=== PATIENT | female | born 1985 | race African-American/Black ===

== ENCOUNTER 2016-08-09 21:15 | Inpatient (IN) | payer MEDICARE, MEDICAID ==
[~2016-08-09 21:15] MED LIST: ACYC200C PO; BENZ1TAB10 PO; ELVI1TAB PO; HALO10 PO; LITH300C3 PO; MULT-1238 PO
[2016-08-10] MEDS ORDERED: QUEtiapine FUMARATE 100 MG TABLET PO PRN (03:45)
[2016-08-10] MEDS ORDERED: ZOLPIDEM TARTRATE 10 MG TABLET PO PRN (03:45)
[2016-08-10 05:38] VITALS: BP 112/71
[2016-08-10 06:09] VITALS: BP 112/71
[2016-08-10 08:41] VITALS: BP 105/62
[2016-08-10 15:53] VITALS: BP 110/68
[2016-08-10] MEDS: LORazepam 1 MG TABLET PO PRN (15:53)
[2016-08-10] MEDS: ARIPiprazole 10 MG TABLET PO SCH (16:02)
[2016-08-10 16:39] VITALS: BP 95/61
[2016-08-10] MEDS ORDERED: IBUPROFEN 400 MG TABLET PO PRN (22:30)
[2016-08-10] MEDS ORDERED: ACETAMINOPHEN 325 MG TABLET PO PRN (22:30)
[2016-08-11 00:45] VITALS: BP 100/61
[2016-08-11] MEDS ORDERED: [UNRECOGNIZED DRUG - OTHER] PO SCH (07:00)
[2016-08-11 08:13] VITALS: BP 100/51
[2016-08-11] MEDS: ARIPiprazole 10 MG TABLET PO SCH (08:21)
[2016-08-11] MEDS: MULTIVITAMINS, THERAPEUTIC TABLET PO SCH (08:21)
[2016-08-11 08:40] LABS: APPEARANCE,URINE TURBID (CLEAR); GLUCOSE, URINE (UA) NEGATIVE (NEGATIVE); KETONES,URINE NEGATIVE (NEGATIVE); LEUKOCYTE ESTERASE ,URINE NEGATIVE (NEGATIVE); OCCULT BLOOD,URINE NEGATIVE (NEGATIVE); PROTEIN,URINE TRACE (NEGATIVE)
[2016-08-11 10:40] LABS: ADD UA MICROSCOPIC YES
[2016-08-11 10:42] LABS: AMORPHOUS SEDIMENT,UR Many /LPF (None Seen); CALCIUM OXALATE CRYSTALS,UR Moderate /LPF (None Seen); RBC,URINE None Seen /HPF (0-2); SQUAMOUS EPITHELIAL CELL,UR Rare /LPF (None Seen); WBC,URINE None Seen /HPF (0-5)
[2016-08-11 16:16] VITALS: BP 101/61
[2016-08-11 16:25] VITALS: BP 112/67
[2016-08-11] MEDS: LORazepam 1 MG TABLET PO PRN (16:25)
[2016-08-12 06:10] VITALS: BP 144/75
[2016-08-12 08:37] VITALS: BP 102/59
[2016-08-12] MEDS: ARIPiprazole 10 MG TABLET PO SCH (08:53)
[2016-08-12] MEDS: MULTIVITAMINS, THERAPEUTIC TABLET PO SCH (08:55)
[2016-08-12] MEDS ORDERED: ARIP10TA14 PO (09:41)
== END 2016-08-12 10:45 | disposition home or self-care (01) | DRG 885 ==
LOC: B3A 08-10 01:00
DX: F25.0 Schizoaffective disorder, bipolar type (principal); B20 Human immunodeficiency virus [HIV] disease; E55.9 Vitamin D deficiency, unspecified; F17.200 Nicotine dependence, unspecified, uncomplicated; G47.00 Insomnia, unspecified; K59.00 Constipation, unspecified; F22 Delusional disorders; Z81.8 Family history of other mental and behavioral disorders; Z59.0 Homelessness; Z71.6 Tobacco abuse counseling; Z79.899 Other long term (current) drug therapy
CPT/HCPCS: 87081

== ENCOUNTER 2016-11-11 01:35 | Inpatient (IN) | payer MEDICARE, MEDICAID ==
[~2016-11-11] VITALS: Ht 160 cm; Wt 72.6 kg
[~2016-11-11 01:35] MED LIST changes: -ACYC200C PO; -BENZ1TAB10 PO; -ELVI1TAB PO; +FLUO-191 PO; -HALO10 PO; -LITH300C3 PO; -MULT-1238 PO; +OLAN5TAB2 PO
[2016-11-11] MEDS ORDERED: QUET25TA PO (01:43)
[2016-11-11 03:06] LABS: ANION GAP 11 mmol/L (8-16); CALCIUM, TOTAL 9.9 mg/dL (8.8-10.5); CARBON DIOXIDE 28 mmol/L (22-29); CHLORIDE 100 mmol/L (98-107); CREATININE 0.74 mg/dL (0.60-1.30); GLOMERULAR FILTR. RATE CALC > 60 mL/min (>60); POTASSIUM 4.4 mmol/L (3.5-5.1); SODIUM SERUM 139 mmol/L (136-145); UREA NITROGEN, BLOOD 8 mg/dL (7-18)
[2016-11-11 03:11] LABS: EOSINOPHILS # (AUTO) 0.01 K/uL (0.00-0.70); EOSINOPHILS % (AUTO) 0.12 % (1.0-6.0); HEMATOCRIT 34.6 % (36-46); HEMOGLOBIN 11.4 g/dL (12.0-16.0); LYMPHOCYTES # (AUTO) 0.3 K/uL (1.0-4.8); LYMPHOCYTES % (AUTO) 4.9 % (22.0-44.0); MEAN CORPUSCULAR HEMOGLOBIN 28.6 pg (26.0-34.0); MEAN CORPUSCULAR VOLUME 87 fL (80-100); MONOCYTES # (AUTO) 0.5 K/uL (0.1-1.0); MONOCYTES % (AUTO) 10.5 % (2.0-9.0); NEUTROPHILS # (AUTO) 4.3 K/uL (1.8-7.7); NEUTROPHILS % (AUTO) 84.4 % (40.0-70.0); PLATELET COUNT (AUTO) 227 K/uL (150-450); RED BLOOD CELL COUNT(AUTO) 3.99 MIL/uL (4.00-5.20); RED CELL DISTRIBUTION WIDTH 17.5 % (11.5-14.5); WHITE BLOOD COUNT (AUTO) 5.1 K/uL (4.5-11.0)
[2016-11-11 03:12] LABS: ALANINE AMINOTRANSFERASE 36 U/L (12-78); ALBUMIN 3.5 g/dL (3.4-5.0); ASPARTATE AMINOTRANSFERASE 30 U/L (15-37); BILIRUBIN,TOTAL 0.2 mg/dL (0.1-1.0); TOTAL PROTEIN, SERUM 7.9 g/dL (6.4-8.2)
[2016-11-11 04:22] LABS: CHOL/HDL RATIO 3.4 (3.9-5.7)
[2016-11-11 04:25] LABS: ADD UA MICROSCOPIC NO; APPEARANCE,URINE CLEAR (CLEAR); GLUCOSE, URINE (UA) NEGATIVE (NEGATIVE); KETONES,URINE NEGATIVE (NEGATIVE); LEUKOCYTE ESTERASE ,URINE NEGATIVE (NEGATIVE); OCCULT BLOOD,URINE NEGATIVE (NEGATIVE); PH,URINE 7.5 (5.0-8.0); PROTEIN,URINE NEGATIVE (NEGATIVE)
[2016-11-11 05:13] VITALS: BP 97/62
[2016-11-11] MEDS: HALOPERIDOL 5 MG TABLET PO PRN (05:29)
[2016-11-11] MEDS: LORazepam 2 MG TABLET PO PRN (05:29)
[2016-11-11 05:54] VITALS: BP 97/62
[2016-11-11] MEDS ORDERED: IBUPROFEN 600 MG TABLET PO PRN (08:45)
[2016-11-11] MEDS ORDERED: ACETAMINOPHEN 325 MG TABLET PO PRN (08:45)
[2016-11-11] MEDS ORDERED: MAG HYDROX/AL HYDROX/SIMETH ES 30 ML SUSPENSION UDCUP PO PRN (08:45)
[2016-11-11] MEDS ORDERED: CloNIDine HCL 0.1 MG TABLET PO PRN (08:45)
[2016-11-11] MEDS ORDERED: ALBUTEROL SULFATE HFA 90 MCG/PUFF 8 GM INHALER IH PRN (08:45)
[2016-11-11] MEDS ORDERED: PETROLATUM,WHITE 71 GM JELLY TP PRN (08:45)
[2016-11-11] MEDS ORDERED: BACITRACIN 28.4 GM OINTMENT TP PRN (08:45)
[2016-11-11] MEDS ORDERED: LOPERAMIDE HCL 2 MG CAPSULE PO PRN (08:45)
[2016-11-11] MEDS ORDERED: ONDANSETRON HCL 4 MG TABLET PO PRN (08:45)
[2016-11-11] MEDS ORDERED: MAGNESIUM HYDROXIDE SUSPENSION 30 ML UDCUP PO PRN (08:45)
[2016-11-11] MEDS ORDERED: BENZOCAINE/MENTHOL LOZENGE [8 LOZENGES/PACKET] MM PRN (09:00)
[2016-11-11] MEDS: CHOLECALCIFEROL (VIT D3) 1,000 UNITS TABLET PO SCH (09:37)
[2016-11-11] MEDS: MULTIVITAMINS WITH MINERALS, THERAPEUTIC TABLET PO SCH (09:37)
[2016-11-11 11:48] VITALS: BP 99/68
[2016-11-11 16:48] VITALS: BP 108/76
[2016-11-11] MEDS: DIVALPROEX SODIUM 500 MG DR TABLET PO SCH (16:54)
[2016-11-11] MEDS: SIMVASTATIN 10 MG TABLET PO SCH (20:21)
[2016-11-11] MEDS: OLANZapine 7.5 MG TABLET PO SCH (20:21)
[2016-11-12 05:05] VITALS: BP 116/81
[2016-11-12 08:30] VITALS: BP 98/55
[2016-11-12] MEDS: DIVALPROEX SODIUM 500 MG DR TABLET PO SCH ×2 (08:53→16:17)
[2016-11-12] MEDS: CHOLECALCIFEROL (VIT D3) 1,000 UNITS TABLET PO SCH (08:53)
[2016-11-12] MEDS: MULTIVITAMINS WITH MINERALS, THERAPEUTIC TABLET PO SCH (08:53)
[2016-11-12] MEDS: LORazepam 2 MG TABLET PO PRN ×2 (12:45→17:52)
[2016-11-12 16:15] VITALS: BP 103/70
[2016-11-12] MEDS: HALOPERIDOL 5 MG TABLET PO PRN (17:51)
[2016-11-12] MEDS: ZOLPIDEM TARTRATE 10 MG TABLET PO PRN (20:13)
[2016-11-12] MEDS: OLANZapine 7.5 MG TABLET PO SCH (20:13)
[2016-11-12] MEDS: SIMVASTATIN 10 MG TABLET PO SCH (20:13)
[2016-11-13 02:02] VITALS: BP 113/72
[2016-11-13 08:18] VITALS: BP 100/57
[2016-11-13] MEDS: CHOLECALCIFEROL (VIT D3) 1,000 UNITS TABLET PO SCH (08:59)
[2016-11-13] MEDS: MULTIVITAMINS WITH MINERALS, THERAPEUTIC TABLET PO SCH (08:59)
[2016-11-13] MEDS: DIVALPROEX SODIUM 500 MG DR TABLET PO SCH ×2 (09:00→16:35)
[2016-11-13 17:31] VITALS: BP 102/67
[2016-11-13] MEDS: LORazepam 2 MG TABLET PO PRN (17:47)
[2016-11-13] MEDS: HALOPERIDOL 5 MG TABLET PO PRN (17:47)
[2016-11-13] MEDS: SIMVASTATIN 10 MG TABLET PO SCH (20:18)
[2016-11-13] MEDS: OLANZapine 7.5 MG TABLET PO SCH (20:18)
[2016-11-13] MEDS: ZOLPIDEM TARTRATE 10 MG TABLET PO PRN (20:19)
[2016-11-14 08:00] VITALS: BP 117/67
[2016-11-14] MEDS: CHOLECALCIFEROL (VIT D3) 1,000 UNITS TABLET PO SCH (08:58)
[2016-11-14] MEDS: DIVALPROEX SODIUM 500 MG DR TABLET PO SCH ×2 (08:58→16:45)
[2016-11-14] MEDS: MULTIVITAMINS WITH MINERALS, THERAPEUTIC TABLET PO SCH (08:58)
[2016-11-14 17:21] VITALS: BP 102/60
[2016-11-14 17:49] VITALS: BP 115/78
[2016-11-14] MEDS: LORazepam 2 MG TABLET PO PRN (17:49)
[2016-11-14] MEDS: HALOPERIDOL 5 MG TABLET PO PRN (17:49)
[2016-11-14] MEDS: OLANZapine 7.5 MG TABLET PO SCH (20:31)
[2016-11-14] MEDS: SIMVASTATIN 10 MG TABLET PO SCH (20:31)
[2016-11-15] MEDS: HALOPERIDOL 5 MG TABLET PO PRN (09:32)
[2016-11-15] MEDS: CHOLECALCIFEROL (VIT D3) 1,000 UNITS TABLET PO SCH (09:32)
[2016-11-15] MEDS: MULTIVITAMINS WITH MINERALS, THERAPEUTIC TABLET PO SCH (09:32)
[2016-11-15] MEDS: LORazepam 2 MG TABLET PO PRN ×2 (09:32→17:03)
[2016-11-15] MEDS: DIVALPROEX SODIUM 500 MG DR TABLET PO SCH ×2 (09:32→16:04)
[2016-11-15 09:48] VITALS: BP 132/75
[2016-11-15 16:54] VITALS: BP 110/75
[2016-11-15] MEDS: SIMVASTATIN 10 MG TABLET PO SCH (20:24)
[2016-11-15] MEDS: OLANZapine 7.5 MG TABLET PO SCH (20:25)
[2016-11-16] MEDS: DIVALPROEX SODIUM 500 MG DR TABLET PO SCH ×2 (08:05→18:32)
[2016-11-16] MEDS: MULTIVITAMINS WITH MINERALS, THERAPEUTIC TABLET PO SCH (08:05)
[2016-11-16] MEDS: CHOLECALCIFEROL (VIT D3) 1,000 UNITS TABLET PO SCH (08:05)
[2016-11-16 08:56] VITALS: BP 127/71
[2016-11-16] MEDS: LORazepam 2 MG TABLET PO PRN (14:56)
[2016-11-16 18:38] VITALS: BP 123/79
[2016-11-16] MEDS: HALOPERIDOL 5 MG TABLET PO PRN (19:41)
[2016-11-16] MEDS: OLANZapine 7.5 MG TABLET PO SCH (21:09)
[2016-11-16] MEDS: SIMVASTATIN 10 MG TABLET PO SCH (21:10)
[2016-11-17 01:24] VITALS: BP 118/76
[2016-11-17] MEDS: CHOLECALCIFEROL (VIT D3) 1,000 UNITS TABLET PO SCH (08:11)
[2016-11-17] MEDS: DIVALPROEX SODIUM 500 MG DR TABLET PO SCH ×2 (08:11→16:08)
[2016-11-17] MEDS: MULTIVITAMINS WITH MINERALS, THERAPEUTIC TABLET PO SCH (08:11)
[2016-11-17 09:12] VITALS: BP 132/82
[2016-11-17 16:26] VITALS: BP_SYST 117; BP_SYST 132; BP_DIAS 74; BP_DIAS 87
[2016-11-17] MEDS: HALOPERIDOL 5 MG TABLET PO PRN (18:52)
[2016-11-17] MEDS: SIMVASTATIN 10 MG TABLET PO SCH (20:10)
[2016-11-17] MEDS: OLANZapine 7.5 MG TABLET PO SCH (20:10)
[2016-11-17] MEDS ORDERED: DIVA500T35 PO (20:38)
[2016-11-17] MEDS ORDERED: OLAN7.5T2 PO (20:39)
[2016-11-17] MEDS ORDERED: SIMV-259 PO (23:05)
[2016-11-18 05:26] VITALS: BP 106/75
[2016-11-18 08:05] VITALS: BP 131/72
[2016-11-18] MEDS: DIVALPROEX SODIUM 500 MG DR TABLET PO SCH (08:08)
[2016-11-18] MEDS: CHOLECALCIFEROL (VIT D3) 1,000 UNITS TABLET PO SCH (08:08)
[2016-11-18] MEDS: MULTIVITAMINS WITH MINERALS, THERAPEUTIC TABLET PO SCH (08:08)
== END 2016-11-18 10:10 | disposition home or self-care (01) | DRG 885 ==
LOC: EMS 01:36 → 3EX 04:00
PROVIDERS: ADMIT Psychiatry & Neurology Psychiatry; ATTEND Psychiatry & Neurology Psychiatry
DX: F25.9 Schizoaffective disorder, unspecified (principal); D50.9 Iron deficiency anemia, unspecified; E78.5 Hyperlipidemia, unspecified; E55.9 Vitamin D deficiency, unspecified; G47.00 Insomnia, unspecified; F17.200 Nicotine dependence, unspecified, uncomplicated; F41.9 Anxiety disorder, unspecified; F31.9 Bipolar disorder, unspecified; Z79.899 Other long term (current) drug therapy; Z71.6 Tobacco abuse counseling
CPT/HCPCS: 87081; 99285; G0480

== ENCOUNTER 2017-04-28 05:41 | Inpatient (IN) | payer MEDICARE, MEDICAID ==
[~2017-04-28] VITALS: Ht 160 cm; Wt 81.0 kg
[~2017-04-28 05:41] MED LIST changes: +DIVA500T35 PO; -OLAN5TAB2 PO; +OLAN7.5T2 PO; +QUET200T29 PO; +QUET25TA34 PO; +SIMV-259 PO
[2017-04-28 07:02] LABS: BASOPHILS % (AUTO) 0.4 % (0.0-2.0); EOSINOPHILS % (AUTO) 4.7 % (1.0-6.0); HEMATOCRIT 30.7 % (36-46); HEMOGLOBIN 10.2 g/dL (12.0-16.0); LYMPHOCYTES # (AUTO) 0.5 K/uL (1.0-4.8); LYMPHOCYTES % (AUTO) 13.8 % (22.0-44.0); MEAN CORPUSCULAR HEMOGLOBIN 28.2 pg (26.0-34.0); MEAN CORPUSCULAR HGB CONC 33.3 G/dL (31.0-37.0); MEAN CORPUSCULAR VOLUME 85 fL (80-100); MONOCYTES # (AUTO) 0.5 K/uL (0.1-1.0); MONOCYTES % (AUTO) 13.5 % (2.0-9.0); NEUTROPHILS # (AUTO) 2.4 K/uL (1.8-7.7); NEUTROPHILS % (AUTO) 67.6 % (40.0-70.0); PLATELET COUNT (AUTO) 219 K/uL (150-450); RED BLOOD CELL COUNT(AUTO) 3.62 MIL/uL (4.00-5.20); RED CELL DISTRIBUTION WIDTH 21.4 % (11.5-14.5)
[2017-04-28 07:09] LABS: ANION GAP 7 mmol/L (8-16); CALCIUM, TOTAL 9.2 mg/dL (8.8-10.5); CARBON DIOXIDE 26 mmol/L (22-29); CHLORIDE 104 mmol/L (98-107); CREATININE 0.87 mg/dL (0.60-1.30); GLOMERULAR FILTR. RATE CALC > 60 mL/min (>60); GLUCOSE,RANDOM 93 mg/dL (70-110); SODIUM SERUM 137 mmol/L (136-145); UREA NITROGEN, BLOOD 10 mg/dL (7-18)
[2017-04-28 07:14] LABS: ALANINE AMINOTRANSFERASE 25 U/L (12-78); ALKALINE PHOSPHATASE 114 U/L (46-116); ASPARTATE AMINOTRANSFERASE 40 U/L (15-37); BILIRUBIN,TOTAL 0.2 mg/dL (0.1-1.0); TOTAL PROTEIN, SERUM 7.6 g/dL (6.4-8.2)
[2017-04-28 07:30] LABS: AMPHET/METH SCREEN,URINE NEGATIVE (NEGATIVE); BARBITURATE SCREEN, URINE NEGATIVE (NEGATIVE); BENZODIAZEPINES SCREEN,URINE NEGATIVE (NEGATIVE); CANNABINOID SCREEN,URINE NEGATIVE (NEGATIVE); COCAINE SCREEN,URINE NEGATIVE (NEGATIVE); METHADONE SCREEN, URINE NEGATIVE (NEGATIVE); OPIATE SCREEN,URINE NEGATIVE (NEGATIVE)
[2017-04-28 07:34] LABS: PHENCYCLIDINE SCREEN,URINE NEGATIVE (NEGATIVE)
[2017-04-28] MEDS ORDERED: OLANZapine 5 MG TABLET PO ONE (08:30)
[2017-04-28] MEDS ORDERED: OLANZapine 5 MG RAPDIS TABLET PO PRN (08:45)
[2017-04-28] MEDS ORDERED: ZOLPIDEM TARTRATE 10 MG TABLET PO PRN (08:45)
[2017-04-28] MEDS ORDERED: LORazepam 2 MG TABLET PO PRN (08:45)
[2017-04-28 09:56] VITALS: BP 112/69
[2017-04-28] MEDS ORDERED: PROMETHAZINE HCL 25 MG TABLET PO PRN (11:00)
[2017-04-28] MEDS ORDERED: ACETAMINOPHEN 325 MG TABLET PO PRN (11:00)
[2017-04-28] MEDS ORDERED: LOPERAMIDE HCL 2 MG CAPSULE PO PRN ×2 (11:00→19:15)
[2017-04-28] MEDS ORDERED: MAG HYDROX/AL HYDROX/SIMETH ES 30 ML SUSPENSION UDCUP PO PRN ×2 (11:00→19:15)
[2017-04-28] MEDS ORDERED: GuaiFENesin/D-METHORPHAN [SUGAR-FREE] 200-20MG/10 ML SYRUP UDCUP PO PRN (11:00)
[2017-04-28] MEDS ORDERED: HydrOXYzine PAMOATE 50 MG CAPSULE PO PRN (11:00)
[2017-04-28] MEDS ORDERED: MAGNESIUM HYDROXIDE SUSPENSION 30 ML UDCUP PO PRN (11:00)
[2017-04-28] MEDS: FLUoxetine HCL 20 MG CAPSULE PO SCH (12:37)
[2017-04-28] MEDS: THIAMINE HCL 100 MG TABLET PO SCH ×2 (12:37→17:24)
[2017-04-28] MEDS: FOLIC ACID 1 MG TABLET PO SCH (12:37)
[2017-04-28] MEDS: MULTIVITAMINS WITH MINERALS, THERAPEUTIC TABLET PO SCH (12:39)
[2017-04-28 17:00] VITALS: BP 112/72
[2017-04-28] MEDS ORDERED: ALBUTEROL SULFATE HFA 90 MCG/PUFF 8 GM INHALER IH PRN (19:15)
[2017-04-28] MEDS ORDERED: ONDANSETRON HCL 4 MG TABLET PO PRN (19:15)
[2017-04-28] MEDS ORDERED: BACITRACIN 28.4 GM OINTMENT TP PRN (19:15)
[2017-04-28] MEDS ORDERED: IBUPROFEN 600 MG TABLET PO PRN (19:15)
[2017-04-28] MEDS ORDERED: BENZOCAINE/MENTHOL LOZENGE MM PRN (19:15)
[2017-04-28] MEDS ORDERED: CloNIDine HCL 0.1 MG TABLET PO PRN (19:15)
[2017-04-28] MEDS ORDERED: PETROLATUM,WHITE 71 GM JELLY TP PRN (19:15)
[2017-04-28] MEDS: OLANZapine 10 MG RAPDIS TABLET PO SCH (21:29)
[2017-04-29] MEDS: FERROUS SULFATE 325 MG EC TABLET PO SCH ×2 (06:49→18:17)
[2017-04-29 07:34] LABS: CHOL/HDL RATIO 6.1 (3.9-5.7); THYROID STIMULATING HORMONE 1.78 uIU/mL (0.36-3.74)
[2017-04-29 08:26] VITALS: BP 91/58
[2017-04-29] MEDS: FLUoxetine HCL 20 MG CAPSULE PO SCH (08:27)
[2017-04-29] MEDS: MULTIVITAMINS WITH MINERALS, THERAPEUTIC TABLET PO SCH (08:28)
[2017-04-29] MEDS: OMEPRAZOLE 20 MG CAPSULE PO SCH (08:28)
[2017-04-29] MEDS: DOCUSATE SODIUM 100 MG CAPSULE PO SCH (08:28)
[2017-04-29] MEDS: THIAMINE HCL 100 MG TABLET PO SCH ×2 (08:28→18:17)
[2017-04-29] MEDS: FOLIC ACID 1 MG TABLET PO SCH (08:28)
[2017-04-29] MEDS ORDERED: *PATIENT'S OWN MED [ENTER DRUG, DOSE, FREQUENCY IN COMMENTS] CLINICAL ONE ×2 (11:30→13:00)
[2017-04-29] MEDS: STRIBILD TABLET PO SCH (13:54)
[2017-04-29] MEDS: ACYCLOVIR 400 MG TABLET (ZOVIRAX) PO SCH ×2 (13:54→18:17)
[2017-04-29 19:40] VITALS: BP 102/88
[2017-04-29] MEDS: OLANZapine 10 MG RAPDIS TABLET PO SCH (20:48)
[2017-04-29] MEDS: SIMVASTATIN 10 MG TABLET PO SCH (20:48)
[2017-04-30] MEDS: FERROUS SULFATE 325 MG EC TABLET PO SCH ×2 (06:40→17:20)
[2017-04-30 08:15] VITALS: BP 109/64
[2017-04-30] MEDS: ACYCLOVIR 400 MG TABLET (ZOVIRAX) PO SCH ×3 (08:57→17:20)
[2017-04-30] MEDS: STRIBILD TABLET PO SCH (08:58)
[2017-04-30] MEDS: OMEPRAZOLE 20 MG CAPSULE PO SCH (08:58)
[2017-04-30] MEDS: DOCUSATE SODIUM 100 MG CAPSULE PO SCH (08:58)
[2017-04-30] MEDS: FLUoxetine HCL 20 MG CAPSULE PO SCH (08:58)
[2017-04-30] MEDS: MULTIVITAMINS WITH MINERALS, THERAPEUTIC TABLET PO SCH (08:58)
[2017-04-30] MEDS: FOLIC ACID 1 MG TABLET PO SCH (08:58)
[2017-04-30] MEDS: THIAMINE HCL 100 MG TABLET PO SCH ×2 (08:59→17:20)
[2017-04-30 19:17] VITALS: BP 109/69
[2017-04-30] MEDS: OLANZapine 5 MG RAPDIS TABLET PO SCH (20:43)
[2017-04-30] MEDS: SIMVASTATIN 10 MG TABLET PO SCH (20:43)
[2017-05-01] MEDS: FERROUS SULFATE 325 MG EC TABLET PO SCH ×2 (06:45→17:35)
[2017-05-01 08:30] VITALS: BP 129/87
[2017-05-01] MEDS: ACYCLOVIR 400 MG TABLET (ZOVIRAX) PO SCH ×3 (09:21→16:06)
[2017-05-01] MEDS: ELVITEGRAVIR PO SCH (09:21)
[2017-05-01] MEDS: EMTRICITABINE PO SCH (09:21)
[2017-05-01] MEDS: TENOFOVIR DISOPROXIL PO SCH (09:21)
[2017-05-01] MEDS: COBICISTAT PO SCH (09:21)
[2017-05-01] MEDS: FOLIC ACID 1 MG TABLET PO SCH (09:22)
[2017-05-01] MEDS: THIAMINE HCL 100 MG TABLET PO SCH ×2 (09:23→16:06)
[2017-05-01] MEDS: FLUoxetine HCL 20 MG CAPSULE PO SCH (09:23)
[2017-05-01] MEDS: DOCUSATE SODIUM 100 MG CAPSULE PO SCH (09:25)
[2017-05-01] MEDS: MULTIVITAMINS WITH MINERALS, THERAPEUTIC TABLET PO SCH (09:25)
[2017-05-01] MEDS: OMEPRAZOLE 20 MG CAPSULE PO SCH (09:25)
[2017-05-01 16:46] VITALS: BP 119/81
[2017-05-01] MEDS: OLANZapine 5 MG RAPDIS TABLET PO SCH (20:30)
[2017-05-01] MEDS: SIMVASTATIN 10 MG TABLET PO SCH (21:12)
[2017-05-02] MEDS: FERROUS SULFATE 325 MG EC TABLET PO SCH ×2 (06:53→18:40)
[2017-05-02 08:05] VITALS: BP 70/54
[2017-05-02] MEDS: THIAMINE HCL 100 MG TABLET PO SCH ×2 (09:35→16:22)
[2017-05-02] MEDS: FOLIC ACID 1 MG TABLET PO SCH (09:35)
[2017-05-02] MEDS: DOCUSATE SODIUM 100 MG CAPSULE PO SCH (09:35)
[2017-05-02] MEDS: FLUoxetine HCL 20 MG CAPSULE PO SCH (09:35)
[2017-05-02] MEDS: OMEPRAZOLE 20 MG CAPSULE PO SCH (09:35)
[2017-05-02] MEDS: MULTIVITAMINS WITH MINERALS, THERAPEUTIC TABLET PO SCH (09:35)
[2017-05-02] MEDS: ACYCLOVIR 400 MG TABLET (ZOVIRAX) PO SCH ×3 (09:36→16:22)
[2017-05-02] MEDS: EMTRICITABINE PO SCH (09:41)
[2017-05-02] MEDS: COBICISTAT PO SCH (09:41)
[2017-05-02] MEDS: TENOFOVIR DISOPROXIL PO SCH (09:41)
[2017-05-02] MEDS: ELVITEGRAVIR PO SCH (09:41)
[2017-05-02] MEDS ORDERED: OLAN5TAB30 PO (13:27)
[2017-05-02] MEDS ORDERED: NALT50TA PO (13:27)
[2017-05-02] MEDS ORDERED: FLUO-191 PO (13:27)
[2017-05-02 18:44] VITALS: BP 118/89
[2017-05-02] MEDS: OLANZapine 5 MG RAPDIS TABLET PO SCH (20:04)
[2017-05-02] MEDS: SIMVASTATIN 10 MG TABLET PO SCH (20:04)
[2017-05-03] MEDS: FERROUS SULFATE 325 MG EC TABLET PO SCH (07:03)
[2017-05-03 08:33] VITALS: BP 117/75
[2017-05-03] MEDS: FLUoxetine HCL 20 MG CAPSULE PO SCH (08:49)
[2017-05-03] MEDS: ACYCLOVIR 400 MG TABLET (ZOVIRAX) PO SCH (08:49)
[2017-05-03] MEDS: THIAMINE HCL 100 MG TABLET PO SCH (08:50)
[2017-05-03] MEDS: FOLIC ACID 1 MG TABLET PO SCH (08:50)
[2017-05-03] MEDS: MULTIVITAMINS WITH MINERALS, THERAPEUTIC TABLET PO SCH (08:50)
[2017-05-03] MEDS: DOCUSATE SODIUM 100 MG CAPSULE PO SCH (08:50)
[2017-05-03] MEDS: COBICISTAT PO SCH (08:52)
[2017-05-03] MEDS: EMTRICITABINE PO SCH (08:52)
[2017-05-03] MEDS: ELVITEGRAVIR PO SCH (08:52)
[2017-05-03] MEDS: TENOFOVIR DISOPROXIL PO SCH (08:52)
[2017-05-03] MEDS: OMEPRAZOLE 20 MG CAPSULE PO SCH (08:53)
[2017-05-03] MEDS ORDERED: NALTREXONE HCL 50 MG TABLET PO SCH (09:00)
[2017-05-03] MEDS ORDERED: DSS100 PO (09:15)
[2017-05-03] MEDS ORDERED: FERR-89 PO (09:16)
[2017-05-03] MEDS ORDERED: FLUO-191 PO (09:16)
[2017-05-03] MEDS ORDERED: ELVI1TAB PO (09:17)
[2017-05-03] MEDS ORDERED: ACYC200C PO (09:17)
[2017-05-03] MEDS ORDERED: NALT50TA6 PO (09:17)
[2017-05-03] MEDS ORDERED: SIMV-259 PO (09:18)
[2017-05-03] MEDS ORDERED: OMEP20 PO (09:18)
[2017-05-03] MEDS ORDERED: OLAN5TAB40 PO (09:18)
== END 2017-05-03 10:30 | disposition home or self-care (01) | DRG 885 ==
LOC: EMS 05:42 → 3EX 09:26
PROVIDERS: ADMIT Psychiatry & Neurology Psychiatry; ATTEND Psychiatry & Neurology Psychiatry
DX: F20.0 Paranoid schizophrenia (principal); R45.851 Suicidal ideations; Z91.14 Patient's other noncompliance with medication regimen; D64.9 Anemia, unspecified; E78.5 Hyperlipidemia, unspecified; F17.200 Nicotine dependence, unspecified, uncomplicated; G47.00 Insomnia, unspecified; D72.819 Decreased white blood cell count, unspecified; F60.9 Personality disorder, unspecified; Z71.6 Tobacco abuse counseling; Z91.19 Patient's noncompliance with other medical treatment and regimen; Z82.3 Family history of stroke
CPT/HCPCS: 82306; 84443; 86361; 93005; 99285; G0480

== ENCOUNTER 2017-05-08 06:55 | Emergency (ER) | payer MEDICARE, MEDICAID ==
[~2017-05-08] VITALS: Ht 160 cm; Wt 68.2 kg
[~2017-05-08 06:55] MED LIST changes: +ACYC200C PO; -DIVA500T35 PO; +DSS100 PO; +ELVI1TAB PO; +FERR-89 PO; +NALT50TA PO; +OLAN5TAB30 PO; +OLAN5TAB40 PO; -OLAN7.5T2 PO; +OMEP20 PO; -QUET200T29 PO; -QUET25TA34 PO
[2017-05-08 06:57] VITALS: BP 123/70
[2017-05-08 07:41] LABS: BASOPHILS % (AUTO) 0.2 % (0.0-2.0); EOSINOPHILS % (AUTO) 5.3 % (1.0-6.0); HEMATOCRIT 29.3 % (36-46); HEMOGLOBIN 9.7 g/dL (12.0-16.0); LYMPHOCYTES # (AUTO) 0.4 K/uL (1.0-4.8); LYMPHOCYTES % (AUTO) 11.8 % (22.0-44.0); MEAN CORPUSCULAR HEMOGLOBIN 28.4 pg (26.0-34.0); MEAN CORPUSCULAR HGB CONC 33.2 G/dL (31.0-37.0); MEAN CORPUSCULAR VOLUME 86 fL (80-100); MONOCYTES # (AUTO) 0.3 K/uL (0.1-1.0); MONOCYTES % (AUTO) 9.3 % (2.0-9.0); NEUTROPHILS # (AUTO) 2.4 K/uL (1.8-7.7); NEUTROPHILS % (AUTO) 73.4 % (40.0-70.0); PLATELET COUNT (AUTO) 234 K/uL (150-450); RED BLOOD CELL COUNT(AUTO) 3.42 MIL/uL (4.00-5.20); RED CELL DISTRIBUTION WIDTH 21.8 % (11.5-14.5)
[2017-05-08 07:52] LABS: ANION GAP 9 mmol/L (8-16); CALCIUM, TOTAL 8.7 mg/dL (8.8-10.5); CARBON DIOXIDE 28 mmol/L (22-29); CHLORIDE 104 mmol/L (98-107); CREATININE 0.84 mg/dL (0.60-1.30); GLOMERULAR FILTR. RATE CALC > 60 mL/min (>60); GLUCOSE,RANDOM 100 mg/dL (70-110); POTASSIUM 3.3 mmol/L (3.5-5.1); SODIUM SERUM 141 mmol/L (136-145); UREA NITROGEN, BLOOD 8 mg/dL (7-18)
[2017-05-08 07:58] LABS: ALANINE AMINOTRANSFERASE 34 U/L (12-78); ALBUMIN 2.9 g/dL (3.4-5.0); ALKALINE PHOSPHATASE 102 U/L (46-116); ASPARTATE AMINOTRANSFERASE 42 U/L (15-37); BILIRUBIN,TOTAL 0.2 mg/dL (0.1-1.0); TOTAL PROTEIN, SERUM 6.9 g/dL (6.4-8.2)
[2017-05-08 08:05] LABS: AMPHET/METH SCREEN,URINE NEGATIVE (NEGATIVE); BARBITURATE SCREEN, URINE NEGATIVE (NEGATIVE); BENZODIAZEPINES SCREEN,URINE NEGATIVE (NEGATIVE); CANNABINOID SCREEN,URINE NEGATIVE (NEGATIVE); COCAINE SCREEN,URINE NEGATIVE (NEGATIVE); METHADONE SCREEN, URINE NEGATIVE (NEGATIVE); OPIATE SCREEN,URINE NEGATIVE (NEGATIVE)
[2017-05-08 08:07] LABS: PHENCYCLIDINE SCREEN,URINE NEGATIVE (NEGATIVE)
== END 2017-05-08 12:06 | disposition left against medical advice (07) ==
LOC: EMS 06:57
DX: R45.851 Suicidal ideations (principal); F31.9 Bipolar disorder, unspecified; F41.9 Anxiety disorder, unspecified; F20.9 Schizophrenia, unspecified; F17.210 Nicotine dependence, cigarettes, uncomplicated; Z53.21 Procedure and treatment not carried out due to patient leaving prior to being seen by health care provider
CPT/HCPCS: 36415; 80053; 80307; 85025; G0480

== ENCOUNTER 2017-05-12 06:54 | Inpatient (IN) | payer MEDICARE, MEDICAID ==
[~2017-05-12] VITALS: Ht 160 cm; Wt 80.7 kg
[2017-05-12] MEDS ORDERED: ACETAMINOPHEN 500 MG TABLET PO ONE (07:45)
[2017-05-12 08:21] LABS: BASOPHILS % (AUTO) 0.3 % (0.0-2.0); EOSINOPHILS % (AUTO) 3.5 % (1.0-6.0); HEMATOCRIT 28.2 % (36-46); HEMOGLOBIN 9.3 g/dL (12.0-16.0); LYMPHOCYTES # (AUTO) 0.4 K/uL (1.0-4.8); LYMPHOCYTES % (AUTO) 11.5 % (22.0-44.0); MEAN CORPUSCULAR HEMOGLOBIN 27.9 pg (26.0-34.0); MEAN CORPUSCULAR HGB CONC 33.2 G/dL (31.0-37.0); MEAN CORPUSCULAR VOLUME 84 fL (80-100); MONOCYTES # (AUTO) 0.4 K/uL (0.1-1.0); MONOCYTES % (AUTO) 12.2 % (2.0-9.0); NEUTROPHILS # (AUTO) 2.3 K/uL (1.8-7.7); NEUTROPHILS % (AUTO) 72.5 % (40.0-70.0); PLATELET COUNT (AUTO) 223 K/uL (150-450); RED BLOOD CELL COUNT(AUTO) 3.34 MIL/uL (4.00-5.20); RED CELL DISTRIBUTION WIDTH 21.5 % (11.5-14.5)
[2017-05-12 08:27] LABS: AMPHET/METH SCREEN,URINE NEGATIVE (NEGATIVE); BARBITURATE SCREEN, URINE NEGATIVE (NEGATIVE); BENZODIAZEPINES SCREEN,URINE NEGATIVE (NEGATIVE); CANNABINOID SCREEN,URINE NEGATIVE (NEGATIVE); COCAINE SCREEN,URINE NEGATIVE (NEGATIVE); METHADONE SCREEN, URINE NEGATIVE (NEGATIVE); OPIATE SCREEN,URINE NEGATIVE (NEGATIVE)
[2017-05-12 08:28] LABS: ANION GAP 7 mmol/L (8-16); CALCIUM, TOTAL 8.8 mg/dL (8.8-10.5); CARBON DIOXIDE 28 mmol/L (22-29); CHLORIDE 105 mmol/L (98-107); GLOMERULAR FILTR. RATE CALC > 60 mL/min (>60); GLUCOSE,RANDOM 98 mg/dL (70-110); POTASSIUM 3.5 mmol/L (3.5-5.1); SODIUM SERUM 140 mmol/L (136-145); UREA NITROGEN, BLOOD 9 mg/dL (7-18)
[2017-05-12 08:31] LABS: PHENCYCLIDINE SCREEN,URINE NEGATIVE (NEGATIVE)
[2017-05-12 08:33] LABS: ALANINE AMINOTRANSFERASE 32 U/L (12-78); ALBUMIN 2.8 g/dL (3.4-5.0); ALKALINE PHOSPHATASE 100 U/L (46-116); ASPARTATE AMINOTRANSFERASE 39 U/L (15-37); BILIRUBIN,TOTAL 0.2 mg/dL (0.1-1.0); TOTAL PROTEIN, SERUM 6.7 g/dL (6.4-8.2)
[2017-05-12] MEDS ORDERED: HALOPERIDOL 5 MG TABLET PO PRN (10:15)
[2017-05-12 14:53] VITALS: BP 118/70
[2017-05-12] MEDS: ACYCLOVIR 200 MG CAPSULE PO SCH (16:15)
[2017-05-12 17:11] VITALS: BP 121/77
[2017-05-12] MEDS: FERROUS SULFATE 325 MG EC TABLET PO SCH (20:07)
[2017-05-12] MEDS: OLANZapine 5 MG RAPDIS TABLET PO SCH (20:20)
[2017-05-12] MEDS: ZOLPIDEM TARTRATE 10 MG TABLET PO PRN (20:29)
[2017-05-13] MEDS: FERROUS SULFATE 325 MG EC TABLET PO SCH ×2 (06:43→17:04)
[2017-05-13] MEDS ORDERED: MAGNESIUM HYDROXIDE SUSPENSION 30 ML UDCUP PO PRN (07:45)
[2017-05-13] MEDS ORDERED: ONDANSETRON HCL 4 MG TABLET PO PRN (07:45)
[2017-05-13] MEDS: NICOTINE 14 MG/24 HOUR PATCH TD SCH (08:57)
[2017-05-13] MEDS: ACYCLOVIR 200 MG CAPSULE PO SCH ×3 (08:57→17:04)
[2017-05-13] MEDS: MULTIVITAMINS WITH IRON TABLET PO SCH (08:57)
[2017-05-13] MEDS: DOCUSATE SODIUM 100 MG CAPSULE PO SCH (08:57)
[2017-05-13] MEDS: STRIBILD PO SCH (08:57)
[2017-05-13] MEDS: OMEPRAZOLE 20 MG CAPSULE PO SCH (08:57)
[2017-05-13] MEDS: SIMVASTATIN 10 MG TABLET PO SCH (08:57)
[2017-05-13] MEDS: CHOLECALCIFEROL (VIT D3) 1,000 UNITS TABLET PO SCH (08:57)
[2017-05-13] MEDS ORDERED: STRIBILD CLINICAL SCH (09:00)
[2017-05-13 09:16] VITALS: BP 114/72
[2017-05-13 15:22] LABS: BILIRUBIN,URINE NEGATIVE (NEGATIVE); GLUCOSE, URINE (UA) NEGATIVE (NEGATIVE); KETONES,URINE NEGATIVE (NEGATIVE); LEUKOCYTE ESTERASE ,URINE NEGATIVE (NEGATIVE); NITRATE,URINE NEGATIVE (NEGATIVE); OCCULT BLOOD,URINE NEGATIVE (NEGATIVE); PH,URINE 6.5 (5.0-8.0); PROTEIN,URINE NEGATIVE (NEGATIVE); UROBILINOGEN,URINE 0.2 mg/dL (<=1.0)
[2017-05-13 15:29] LABS: APPEARANCE,URINE HAZY (CLEAR)
[2017-05-13 17:30] VITALS: BP 120/75
[2017-05-13] MEDS ORDERED: SIMVASTATIN 10 MG TABLET PO SCH (21:00)
[2017-05-13] MEDS: OLANZapine 5 MG RAPDIS TABLET PO SCH (21:19)
[2017-05-13] MEDS: ZOLPIDEM TARTRATE 10 MG TABLET PO PRN (21:24)
[2017-05-14] MEDS: FERROUS SULFATE 325 MG EC TABLET PO SCH ×2 (07:21→16:45)
[2017-05-14] MEDS: OMEPRAZOLE 20 MG CAPSULE PO SCH (08:11)
[2017-05-14] MEDS: STRIBILD PO SCH (08:11)
[2017-05-14] MEDS: ACYCLOVIR 200 MG CAPSULE PO SCH ×3 (08:11→16:45)
[2017-05-14] MEDS: CHOLECALCIFEROL (VIT D3) 1,000 UNITS TABLET PO SCH (08:11)
[2017-05-14] MEDS: DOCUSATE SODIUM 100 MG CAPSULE PO SCH (08:11)
[2017-05-14] MEDS: MULTIVITAMINS WITH IRON TABLET PO SCH (08:12)
[2017-05-14] MEDS: SIMVASTATIN 10 MG TABLET PO SCH (08:12)
[2017-05-14] MEDS: NICOTINE 14 MG/24 HOUR PATCH TD SCH (08:14)
[2017-05-14 09:53] VITALS: BP 106/68
[2017-05-14 16:54] VITALS: BP 100/68
[2017-05-14] MEDS: OLANZapine 5 MG RAPDIS TABLET PO SCH (20:56)
[2017-05-15] MEDS: FERROUS SULFATE 325 MG EC TABLET PO SCH ×2 (06:44→18:08)
[2017-05-15] MEDS: CHOLECALCIFEROL (VIT D3) 1,000 UNITS TABLET PO SCH (08:58)
[2017-05-15] MEDS: DOCUSATE SODIUM 100 MG CAPSULE PO SCH (08:58)
[2017-05-15] MEDS: ACYCLOVIR 200 MG CAPSULE PO SCH ×3 (08:58→16:32)
[2017-05-15] MEDS: MULTIVITAMINS WITH IRON TABLET PO SCH (08:59)
[2017-05-15] MEDS: STRIBILD PO SCH (08:59)
[2017-05-15] MEDS: OMEPRAZOLE 20 MG CAPSULE PO SCH (08:59)
[2017-05-15] MEDS: NICOTINE 14 MG/24 HOUR PATCH TD SCH (09:00)
[2017-05-15] MEDS: SIMVASTATIN 10 MG TABLET PO SCH (09:00)
[2017-05-15] MEDS: ACETAMINOPHEN 325 MG TABLET PO PRN (09:52)
[2017-05-15 09:55] VITALS: BP 127/70
[2017-05-15 10:52] VITALS: BP 123/68
[2017-05-15 17:14] VITALS: BP 120/71
[2017-05-15] MEDS: OLANZapine 5 MG RAPDIS TABLET PO SCH (20:30)
[2017-05-15] MEDS: ZOLPIDEM TARTRATE 10 MG TABLET PO PRN (20:30)
[2017-05-16] MEDS: FERROUS SULFATE 325 MG EC TABLET PO SCH ×2 (06:48→18:44)
[2017-05-16] MEDS: STRIBILD PO SCH (08:01)
[2017-05-16] MEDS: CHOLECALCIFEROL (VIT D3) 1,000 UNITS TABLET PO SCH (08:01)
[2017-05-16] MEDS: OMEPRAZOLE 20 MG CAPSULE PO SCH (08:01)
[2017-05-16] MEDS: ACYCLOVIR 200 MG CAPSULE PO SCH ×3 (08:01→16:21)
[2017-05-16] MEDS: MULTIVITAMINS WITH IRON TABLET PO SCH (08:01)
[2017-05-16] MEDS: DOCUSATE SODIUM 100 MG CAPSULE PO SCH (08:01)
[2017-05-16] MEDS: SIMVASTATIN 10 MG TABLET PO SCH (08:02)
[2017-05-16] MEDS: NICOTINE 14 MG/24 HOUR PATCH TD SCH ×2 (08:03→09:00)
[2017-05-16 10:33] VITALS: BP 96/55
[2017-05-16 16:18] VITALS: BP 102/55
[2017-05-16] MEDS: ACETAMINOPHEN 325 MG TABLET PO PRN (16:21)
[2017-05-16] MEDS: ZOLPIDEM TARTRATE 10 MG TABLET PO PRN (20:20)
[2017-05-16] MEDS: OLANZapine 5 MG RAPDIS TABLET PO SCH (20:20)
[2017-05-17] MEDS: FERROUS SULFATE 325 MG EC TABLET PO SCH ×3 (07:01→17:40)
[2017-05-17 09:00] VITALS: BP 137/90
[2017-05-17] MEDS: NICOTINE 14 MG/24 HOUR PATCH TD SCH (09:00)
[2017-05-17] MEDS: CHOLECALCIFEROL (VIT D3) 1,000 UNITS TABLET PO SCH (09:03)
[2017-05-17] MEDS: SIMVASTATIN 10 MG TABLET PO SCH (09:04)
[2017-05-17] MEDS: MULTIVITAMINS WITH IRON TABLET PO SCH (09:04)
[2017-05-17] MEDS: ACYCLOVIR 200 MG CAPSULE PO SCH ×3 (09:04→16:07)
[2017-05-17] MEDS: DOCUSATE SODIUM 100 MG CAPSULE PO SCH (09:04)
[2017-05-17] MEDS: STRIBILD PO SCH (09:05)
[2017-05-17] MEDS: OMEPRAZOLE 20 MG CAPSULE PO SCH (09:05)
[2017-05-17 17:13] VITALS: BP 128/85
[2017-05-17] MEDS: OLANZapine 5 MG RAPDIS TABLET PO SCH (20:37)
[2017-05-17] MEDS: ZOLPIDEM TARTRATE 10 MG TABLET PO PRN (20:41)
[2017-05-18] MEDS: FERROUS SULFATE 325 MG EC TABLET PO SCH ×2 (07:13→16:36)
[2017-05-18 08:05] VITALS: BP 127/74
[2017-05-18] MEDS: SIMVASTATIN 10 MG TABLET PO SCH (08:31)
[2017-05-18] MEDS: CHOLECALCIFEROL (VIT D3) 1,000 UNITS TABLET PO SCH (08:31)
[2017-05-18] MEDS: STRIBILD PO SCH (08:31)
[2017-05-18] MEDS: DOCUSATE SODIUM 100 MG CAPSULE PO SCH (08:31)
[2017-05-18] MEDS: MULTIVITAMINS WITH IRON TABLET PO SCH (08:31)
[2017-05-18] MEDS: OMEPRAZOLE 20 MG CAPSULE PO SCH (08:31)
[2017-05-18] MEDS: ACYCLOVIR 200 MG CAPSULE PO SCH ×3 (08:32→16:01)
[2017-05-18 09:45] VITALS: BP 123/69
[2017-05-18] MEDS: ACETAMINOPHEN 325 MG TABLET PO PRN (09:46)
[2017-05-18 10:45] VITALS: BP 118/72
[2017-05-18 16:00] VITALS: BP 123/72
[2017-05-18] MEDS: IBUPROFEN 600 MG TABLET PO PRN (16:00)
[2017-05-18 17:00] VITALS: BP 126/68
[2017-05-18] MEDS: OLANZapine 5 MG RAPDIS TABLET PO SCH (20:04)
[2017-05-18] MEDS: ZOLPIDEM TARTRATE 10 MG TABLET PO PRN (20:05)
[2017-05-19] MEDS: FERROUS SULFATE 325 MG EC TABLET PO SCH ×2 (07:01→18:43)
[2017-05-19] MEDS: MULTIVITAMINS WITH IRON TABLET PO SCH (08:54)
[2017-05-19] MEDS: SIMVASTATIN 10 MG TABLET PO SCH (08:54)
[2017-05-19] MEDS: CHOLECALCIFEROL (VIT D3) 1,000 UNITS TABLET PO SCH (08:54)
[2017-05-19] MEDS: ACYCLOVIR 200 MG CAPSULE PO SCH ×3 (08:54→16:17)
[2017-05-19] MEDS: OMEPRAZOLE 20 MG CAPSULE PO SCH (08:54)
[2017-05-19] MEDS: DOCUSATE SODIUM 100 MG CAPSULE PO SCH (08:54)
[2017-05-19] MEDS: STRIBILD PO SCH (09:03)
[2017-05-19 12:25] VITALS: BP 115/62
[2017-05-19] MEDS: IBUPROFEN 600 MG TABLET PO PRN (12:30)
[2017-05-19] MEDS: LORazepam 2 MG TABLET PO PRN (12:30)
[2017-05-19 17:06] VITALS: BP 120/77
[2017-05-19] MEDS: OLANZapine 5 MG RAPDIS TABLET PO SCH (20:04)
[2017-05-19] MEDS: ZOLPIDEM TARTRATE 10 MG TABLET PO PRN (20:25)
[2017-05-20] MEDS: FERROUS SULFATE 325 MG EC TABLET PO SCH ×2 (06:45→17:02)
[2017-05-20] MEDS: MULTIVITAMINS WITH IRON TABLET PO SCH (09:07)
[2017-05-20] MEDS: ACYCLOVIR 200 MG CAPSULE PO SCH ×3 (09:07→17:02)
[2017-05-20] MEDS: STRIBILD PO SCH (09:07)
[2017-05-20] MEDS: DOCUSATE SODIUM 100 MG CAPSULE PO SCH (09:07)
[2017-05-20] MEDS: OMEPRAZOLE 20 MG CAPSULE PO SCH (09:07)
[2017-05-20] MEDS: SIMVASTATIN 10 MG TABLET PO SCH (09:08)
[2017-05-20] MEDS: CHOLECALCIFEROL (VIT D3) 1,000 UNITS TABLET PO SCH (09:08)
[2017-05-20] MEDS: IBUPROFEN 600 MG TABLET PO PRN (12:21)
[2017-05-20 12:26] VITALS: BP 112/64
[2017-05-20 13:36] VITALS: BP 115/68
[2017-05-20 17:04] VITALS: BP 117/68
[2017-05-20] MEDS: ACETAMINOPHEN 325 MG TABLET PO PRN (17:04)
[2017-05-20] MEDS: LORazepam 2 MG TABLET PO PRN (17:58)
[2017-05-20] MEDS: OLANZapine 5 MG RAPDIS TABLET PO SCH (20:15)
[2017-05-20] MEDS: ZOLPIDEM TARTRATE 10 MG TABLET PO PRN (20:15)
[2017-05-21] MEDS: LORazepam 2 MG TABLET PO PRN (03:13)
[2017-05-21 03:19] VITALS: BP 119/88
[2017-05-21] MEDS: FERROUS SULFATE 325 MG EC TABLET PO SCH ×2 (07:04→17:45)
[2017-05-21] MEDS: MULTIVITAMINS WITH IRON TABLET PO SCH (09:06)
[2017-05-21] MEDS: ACYCLOVIR 200 MG CAPSULE PO SCH ×3 (09:06→17:45)
[2017-05-21] MEDS: STRIBILD PO SCH (09:06)
[2017-05-21] MEDS: SIMVASTATIN 10 MG TABLET PO SCH (09:07)
[2017-05-21] MEDS: CHOLECALCIFEROL (VIT D3) 1,000 UNITS TABLET PO SCH (09:07)
[2017-05-21] MEDS: OMEPRAZOLE 20 MG CAPSULE PO SCH (09:07)
[2017-05-21] MEDS: DOCUSATE SODIUM 100 MG CAPSULE PO SCH (09:08)
[2017-05-21 09:28] VITALS: BP 97/73
[2017-05-21 16:59] VITALS: BP 110/78
[2017-05-21 18:20] VITALS: BP 116/69
[2017-05-21] MEDS: IBUPROFEN 600 MG TABLET PO PRN (18:27)
[2017-05-21 19:20] VITALS: BP 110/71
[2017-05-21] MEDS: OLANZapine 5 MG RAPDIS TABLET PO SCH (20:19)
[2017-05-21] MEDS: ZOLPIDEM TARTRATE 10 MG TABLET PO PRN (22:27)
[2017-05-22 05:01] VITALS: BP 114/92
[2017-05-22] MEDS: FERROUS SULFATE 325 MG EC TABLET PO SCH ×3 (07:07→09:00)
[2017-05-22 08:42] VITALS: BP 125/76
[2017-05-22] MEDS: STRIBILD PO SCH (08:57)
[2017-05-22] MEDS: CHOLECALCIFEROL (VIT D3) 1,000 UNITS TABLET PO SCH (08:57)
[2017-05-22] MEDS: ACYCLOVIR 200 MG CAPSULE PO SCH ×3 (08:57→16:17)
[2017-05-22] MEDS: DOCUSATE SODIUM 100 MG CAPSULE PO SCH (08:57)
[2017-05-22] MEDS: OMEPRAZOLE 20 MG CAPSULE PO SCH (08:57)
[2017-05-22] MEDS: MULTIVITAMINS WITH IRON TABLET PO SCH (09:05)
[2017-05-22] MEDS: SIMVASTATIN 10 MG TABLET PO SCH (09:06)
[2017-05-22] MEDS ORDERED: HydrOXYzine PAMOATE 50 MG CAPSULE PO PRN (15:30)
[2017-05-22] MEDS ORDERED: GuaiFENesin/D-METHORPHAN [SUGAR-FREE] 200-20MG/10 ML SYRUP UDCUP PO PRN (15:30)
[2017-05-22] MEDS: THIAMINE HCL 100 MG TABLET PO SCH (16:16)
[2017-05-22] MEDS: ACETAMINOPHEN 325 MG TABLET PO PRN (16:16)
[2017-05-22 16:51] VITALS: BP 105/74
[2017-05-22] MEDS: ZOLPIDEM TARTRATE 10 MG TABLET PO PRN (20:00)
[2017-05-22] MEDS: OLANZapine 5 MG RAPDIS TABLET PO SCH (20:01)
[2017-05-23] MEDS: FERROUS SULFATE 325 MG EC TABLET PO SCH ×2 (07:02→16:31)
[2017-05-23] MEDS: STRIBILD PO SCH (08:42)
[2017-05-23] MEDS: THIAMINE HCL 100 MG TABLET PO SCH ×2 (08:43→16:31)
[2017-05-23] MEDS: MULTIVITAMINS WITH MINERALS, THERAPEUTIC TABLET PO SCH (08:43)
[2017-05-23] MEDS: FLUoxetine HCL 20 MG CAPSULE PO SCH (08:43)
[2017-05-23] MEDS: CHOLECALCIFEROL (VIT D3) 1,000 UNITS TABLET PO SCH (08:43)
[2017-05-23] MEDS: SIMVASTATIN 10 MG TABLET PO SCH (08:43)
[2017-05-23] MEDS: FOLIC ACID 1 MG TABLET PO SCH (08:43)
[2017-05-23] MEDS: OMEPRAZOLE 20 MG CAPSULE PO SCH (08:43)
[2017-05-23] MEDS: DOCUSATE SODIUM 100 MG CAPSULE PO SCH (08:43)
[2017-05-23] MEDS: NALTREXONE HCL 50 MG TABLET PO SCH (08:43)
[2017-05-23] MEDS: ACYCLOVIR 200 MG CAPSULE PO SCH ×3 (08:44→16:31)
[2017-05-23 09:35] VITALS: BP 98/58
[2017-05-23] MEDS: IBUPROFEN 600 MG TABLET PO PRN ×2 (09:35→16:32)
[2017-05-23] MEDS ORDERED: OLAN5TAB30 PO (12:10)
[2017-05-23] MEDS ORDERED: NALT50TA PO (12:10)
[2017-05-23] MEDS ORDERED: FLUO-191 PO (12:10)
[2017-05-23 16:32] VITALS: BP 114/82
[2017-05-23] MEDS: ZOLPIDEM TARTRATE 10 MG TABLET PO PRN (20:09)
[2017-05-23] MEDS: OLANZapine 5 MG RAPDIS TABLET PO SCH (20:09)
[2017-05-24] MEDS: FERROUS SULFATE 325 MG EC TABLET PO SCH (07:11)
[2017-05-24 08:00] VITALS: BP 108/80
[2017-05-24] MEDS ORDERED: VITAD1000 PO (08:07)
[2017-05-24] MEDS: OMEPRAZOLE 20 MG CAPSULE PO SCH (09:02)
[2017-05-24] MEDS: STRIBILD PO SCH (09:02)
[2017-05-24] MEDS: FOLIC ACID 1 MG TABLET PO SCH (09:02)
[2017-05-24] MEDS: DOCUSATE SODIUM 100 MG CAPSULE PO SCH (09:02)
[2017-05-24] MEDS: FLUoxetine HCL 20 MG CAPSULE PO SCH (09:03)
[2017-05-24] MEDS: THIAMINE HCL 100 MG TABLET PO SCH (09:03)
[2017-05-24] MEDS: CHOLECALCIFEROL (VIT D3) 1,000 UNITS TABLET PO SCH (09:03)
[2017-05-24] MEDS: SIMVASTATIN 10 MG TABLET PO SCH (09:03)
[2017-05-24] MEDS: MULTIVITAMINS WITH MINERALS, THERAPEUTIC TABLET PO SCH (09:03)
[2017-05-24] MEDS: NALTREXONE HCL 50 MG TABLET PO SCH (09:03)
[2017-05-24] MEDS: ACYCLOVIR 200 MG CAPSULE PO SCH (09:04)
[2017-05-24] MEDS: IBUPROFEN 600 MG TABLET PO PRN (10:14)
== END 2017-05-24 10:30 | disposition home or self-care (01) | DRG 885 ==
LOC: EMS 06:56 → 3EX 10:18
PROVIDERS: ADMIT Psychiatry & Neurology Psychiatry; ATTEND Psychiatry & Neurology Psychiatry
DX: F25.9 Schizoaffective disorder, unspecified (principal); R45.851 Suicidal ideations; Z91.14 Patient's other noncompliance with medication regimen; D50.9 Iron deficiency anemia, unspecified; F17.200 Nicotine dependence, unspecified, uncomplicated; B00.9 Herpesviral infection, unspecified; E55.9 Vitamin D deficiency, unspecified; E66.9 Obesity, unspecified; E78.5 Hyperlipidemia, unspecified; G47.00 Insomnia, unspecified; Z82.3 Family history of stroke; Z71.6 Tobacco abuse counseling
CPT/HCPCS: 87081; 99285; G0480

== ENCOUNTER 2018-03-11 15:26 | Inpatient (IN) | payer MEDICARE, MEDICAID ==
[~2018-03-11] VITALS: Ht 160 cm; Wt 92.1 kg
[~2018-03-11 15:26] MED LIST changes: -OLAN5TAB40 PO; +VITAD1000 PO
[2018-03-11 16:11] LABS: BASOPHILS % (AUTO) 0.3 % (0.0-2.0); EOSINOPHILS % (AUTO) 2.4 % (1.0-6.0); HEMATOCRIT 35.5 % (36-46); HEMOGLOBIN 11.4 g/dL (12.0-16.0); LYMPHOCYTES # (AUTO) 1.4 K/uL (1.0-4.8); LYMPHOCYTES % (AUTO) 25.5 % (22.0-44.0); MEAN CORPUSCULAR HEMOGLOBIN 26.2 pg (26.0-34.0); MEAN CORPUSCULAR HGB CONC 32.1 G/dL (31.0-37.0); MEAN CORPUSCULAR VOLUME 82 fL (80-100); MONOCYTES # (AUTO) 0.3 K/uL (0.1-1.0); MONOCYTES % (AUTO) 6.3 % (2.0-9.0); NEUTROPHILS # (AUTO) 3.6 K/uL (1.8-7.7); NEUTROPHILS % (AUTO) 65.5 % (40.0-70.0); RED BLOOD CELL COUNT(AUTO) 4.35 MIL/uL (4.00-5.20); RED CELL DISTRIBUTION WIDTH 18.4 % (11.5-14.5)
[2018-03-11 16:28] LABS: ANION GAP 7 mmol/L (8-16); CALCIUM, TOTAL 8.9 mg/dL (8.8-10.5); CARBON DIOXIDE 28 mmol/L (22-29); CHLORIDE 102 mmol/L (98-107); CREATININE 1.02 mg/dL (0.60-1.30); GLOMERULAR FILTR. RATE CALC > 60 mL/min (>60); GLUCOSE,RANDOM 107 mg/dL (70-110); POTASSIUM 3.9 mmol/L (3.5-5.1); SODIUM SERUM 137 mmol/L (136-145); UREA NITROGEN, BLOOD 9 mg/dL (7-18)
[2018-03-11 16:31] LABS: PLATELET COUNT (AUTO) 240 K/uL (150-450)
[2018-03-11 16:35] LABS: ALANINE AMINOTRANSFERASE 23 U/L (12-78); ALBUMIN 3.2 g/dL (3.4-5.0); ALKALINE PHOSPHATASE 140 U/L (46-116); ASPARTATE AMINOTRANSFERASE 24 U/L (15-37); BILIRUBIN,TOTAL 0.2 mg/dL (0.1-1.0); HCG,QUANTITATIVE < 1 mIU/mL (0-6); TOTAL PROTEIN, SERUM 8.4 g/dL (6.4-8.2)
[2018-03-11] MEDS ORDERED: HALOPERIDOL 5 MG TABLET PO PRN (19:15)
[2018-03-11] MEDS ORDERED: LORazepam 2 MG TABLET PO PRN (19:15)
[2018-03-11 20:25] LABS: AMPHET/METH SCREEN,URINE POSITIVE (NEGATIVE); BARBITURATE SCREEN, URINE NEGATIVE (NEGATIVE); BENZODIAZEPINES SCREEN,URINE NEGATIVE (NEGATIVE); CANNABINOID SCREEN,URINE NEGATIVE (NEGATIVE); COCAINE SCREEN,URINE NEGATIVE (NEGATIVE); METHADONE SCREEN, URINE NEGATIVE (NEGATIVE); OPIATE SCREEN,URINE NEGATIVE (NEGATIVE)
[2018-03-11 20:26] LABS: PHENCYCLIDINE SCREEN,URINE NEGATIVE (NEGATIVE)
[2018-03-11 21:58] LABS: APPEARANCE,URINE CLOUDY (CLEAR); BILIRUBIN,URINE NEGATIVE (NEGATIVE); GLUCOSE, URINE (UA) NEGATIVE (NEGATIVE); KETONES,URINE TRACE mg/dL (NEGATIVE); LEUKOCYTE ESTERASE ,URINE SMALL (NEGATIVE); NITRATE,URINE NEGATIVE (NEGATIVE); OCCULT BLOOD,URINE NEGATIVE (NEGATIVE); PH,URINE 5.5 (5.0-8.0); PROTEIN,URINE NEGATIVE (NEGATIVE)
[2018-03-11 22:04] LABS: BACTERIA,URINE Few /HPF (None Seen); RBC,URINE 0-2 /HPF (0-2)
[2018-03-11 22:05] LABS: CALCIUM OXALATE CRYSTALS,UR Many /LPF (None Seen); SQUAMOUS EPITHELIAL CELL,UR Many /LPF (None Seen)
[2018-03-12 00:16] VITALS: BP 120/81
[2018-03-12] MEDS: ZOLPIDEM TARTRATE 10 MG TABLET PO PRN ×2 (00:20→22:26)
[2018-03-12] MEDS ORDERED: PNEUMOCOCCAL VACCINE POLYVALENT 0.5 ML VIAL [PPSV23] IM ONE (04:30)
[2018-03-12] MEDS ORDERED: NICOTINE 14 MG/24 HOUR PATCH TD PRN (07:15)
[2018-03-12] MEDS ORDERED: ALBUTEROL SULFATE HFA 90 MCG/PUFF 8 GM INHALER IH PRN (07:15)
[2018-03-12] MEDS ORDERED: DOCUSATE SODIUM 100 MG CAPSULE PO PRN (07:15)
[2018-03-12] MEDS ORDERED: MAG HYDROX/AL HYDROX/SIMETH ES 30 ML SUSPENSION UDCUP PO PRN (07:15)
[2018-03-12] MEDS ORDERED: CloNIDine HCL 0.1 MG TABLET PO PRN (07:15)
[2018-03-12] MEDS ORDERED: GuaiFENesin/D-METHORPHAN [SUGAR-FREE] 200-20MG/10 ML SYRUP UDCUP PO PRN (07:15)
[2018-03-12] MEDS ORDERED: LOPERAMIDE HCL 2 MG CAPSULE PO PRN (07:15)
[2018-03-12] MEDS ORDERED: MAGNESIUM HYDROXIDE SUSPENSION 30 ML UDCUP PO PRN (07:15)
[2018-03-12] MEDS ORDERED: IBUPROFEN 400 MG TABLET PO PRN (07:15)
[2018-03-12] MEDS ORDERED: ONDANSETRON HCL 4 MG TABLET PO PRN (07:15)
[2018-03-12] MEDS ORDERED: ACETAMINOPHEN 325 MG TABLET PO PRN (07:15)
[2018-03-12] MEDS ORDERED: PETROLATUM,WHITE 71 GM JELLY TP PRN (07:15)
[2018-03-12 08:26] VITALS: BP 116/72
[2018-03-12] MEDS ORDERED: [UNRECOGNIZED DRUG - OTHER] PO SCH (09:00)
[2018-03-12] MEDS: OMEPRAZOLE 20 MG CAPSULE PO SCH (09:10)
[2018-03-12] MEDS: CHOLECALCIFEROL (VIT D3) 1,000 UNITS TABLET PO SCH (09:10)
[2018-03-12] MEDS: SIMVASTATIN 10 MG TABLET PO SCH (09:10)
[2018-03-12] MEDS: CEPHALEXIN MONOHYDRATE 500 MG CAPSULE PO SCH ×3 (09:10→16:38)
[2018-03-12] MEDS: DOCUSATE SODIUM 100 MG CAPSULE PO SCH (09:10)
[2018-03-12] MEDS: ACYCLOVIR 200 MG CAPSULE PO SCH ×3 (11:52→16:39)
[2018-03-12] MEDS: FLUoxetine HCL 20 MG CAPSULE PO SCH (12:35)
[2018-03-12 13:02] LABS: CHOL/HDL RATIO 4.4 (3.9-5.7)
[2018-03-12] MEDS ORDERED: LORazepam 1 MG TABLET PO PRN (15:15)
[2018-03-12 16:30] VITALS: BP 118/72
[2018-03-12] MEDS: FERROUS SULFATE 325 MG EC TABLET PO SCH (16:38)
[2018-03-12] MEDS: OLANZapine 7.5 MG TABLET PO SCH (20:31)
[2018-03-12] MEDS: TENOFOVIR ALAFENAMIDE PO SCH (22:27)
[2018-03-12] MEDS: BICTEGRAVIR PO SCH (22:27)
[2018-03-12] MEDS: DARUNAVIR PO SCH (22:27)
[2018-03-12] MEDS: EMTRICITABINE PO SCH (22:27)
[2018-03-12] MEDS: COBICISTAT PO SCH (22:27)
[2018-03-13 01:50] VITALS: BP 106/73
[2018-03-13] MEDS: FERROUS SULFATE 325 MG EC TABLET PO SCH ×2 (06:38→16:32)
[2018-03-13] MEDS: COBICISTAT PO SCH (06:39)
[2018-03-13] MEDS: DARUNAVIR PO SCH (06:39)
[2018-03-13] MEDS: EMTRICITABINE PO SCH (07:04)
[2018-03-13] MEDS: TENOFOVIR ALAFENAMIDE PO SCH (07:04)
[2018-03-13] MEDS: BICTEGRAVIR PO SCH (07:04)
[2018-03-13 08:23] VITALS: BP 120/69
[2018-03-13] MEDS: FLUoxetine HCL 20 MG CAPSULE PO SCH (08:24)
[2018-03-13] MEDS: ACYCLOVIR 200 MG CAPSULE PO SCH ×3 (08:24→16:32)
[2018-03-13] MEDS: OMEPRAZOLE 20 MG CAPSULE PO SCH (08:24)
[2018-03-13] MEDS: CEPHALEXIN MONOHYDRATE 500 MG CAPSULE PO SCH ×3 (08:24→16:32)
[2018-03-13] MEDS: CHOLECALCIFEROL (VIT D3) 1,000 UNITS TABLET PO SCH (08:24)
[2018-03-13] MEDS: DOCUSATE SODIUM 100 MG CAPSULE PO SCH (08:25)
[2018-03-13] MEDS: SIMVASTATIN 10 MG TABLET PO SCH (08:25)
[2018-03-13 16:00] VITALS: BP 124/79
[2018-03-13] MEDS: OLANZapine 7.5 MG TABLET PO SCH (20:34)
[2018-03-13] MEDS: ZOLPIDEM TARTRATE 10 MG TABLET PO PRN (21:13)
[2018-03-14 00:58] VITALS: BP 12/68
[2018-03-14] MEDS: FERROUS SULFATE 325 MG EC TABLET PO SCH ×2 (06:53→16:54)
[2018-03-14] MEDS: COBICISTAT PO SCH (07:19)
[2018-03-14] MEDS: DARUNAVIR PO SCH (07:19)
[2018-03-14 08:13] VITALS: BP 115/78
[2018-03-14] MEDS: TENOFOVIR ALAFENAMIDE PO SCH (08:57)
[2018-03-14] MEDS: BICTEGRAVIR PO SCH (08:57)
[2018-03-14] MEDS: EMTRICITABINE PO SCH (08:57)
[2018-03-14] MEDS: CEPHALEXIN MONOHYDRATE 500 MG CAPSULE PO SCH ×3 (08:58→16:54)
[2018-03-14] MEDS: OMEPRAZOLE 20 MG CAPSULE PO SCH (08:58)
[2018-03-14] MEDS: DOCUSATE SODIUM 100 MG CAPSULE PO SCH (08:58)
[2018-03-14] MEDS: FLUoxetine HCL 20 MG CAPSULE PO SCH (08:58)
[2018-03-14] MEDS: CHOLECALCIFEROL (VIT D3) 1,000 UNITS TABLET PO SCH (08:58)
[2018-03-14] MEDS: ACYCLOVIR 200 MG CAPSULE PO SCH ×3 (08:58→16:54)
[2018-03-14] MEDS: SIMVASTATIN 10 MG TABLET PO SCH (08:58)
[2018-03-14] MEDS ORDERED: NON FORMULARY MEDICATION - TABLET PO SCH (09:00)
[2018-03-14 16:05] VITALS: BP 116/74
[2018-03-14] MEDS: OLANZapine 10 MG TABLET PO SCH (20:15)
[2018-03-15 00:14] VITALS: BP 107/62
[2018-03-15] MEDS: ZOLPIDEM TARTRATE 10 MG TABLET PO PRN ×2 (00:22→21:26)
[2018-03-15] MEDS: FERROUS SULFATE 325 MG EC TABLET PO SCH ×2 (06:48→16:29)
[2018-03-15] MEDS: COBICISTAT PO SCH (06:49)
[2018-03-15] MEDS: DARUNAVIR PO SCH (06:49)
[2018-03-15 08:05] VITALS: BP 105/61
[2018-03-15] MEDS: OMEPRAZOLE 20 MG CAPSULE PO SCH (08:34)
[2018-03-15] MEDS: DOCUSATE SODIUM 100 MG CAPSULE PO SCH (08:34)
[2018-03-15] MEDS: CHOLECALCIFEROL (VIT D3) 1,000 UNITS TABLET PO SCH (08:34)
[2018-03-15] MEDS: SIMVASTATIN 10 MG TABLET PO SCH (08:34)
[2018-03-15] MEDS: FLUoxetine HCL 20 MG CAPSULE PO SCH (08:34)
[2018-03-15] MEDS: CEPHALEXIN MONOHYDRATE 500 MG CAPSULE PO SCH ×3 (08:34→16:28)
[2018-03-15] MEDS: ACYCLOVIR 200 MG CAPSULE PO SCH ×3 (08:35→16:29)
[2018-03-15] MEDS ORDERED: DARUNAVIR PO ONE (11:30)
[2018-03-15] MEDS ORDERED: COBICISTAT PO ONE (11:30)
[2018-03-15] MEDS: BICTEGRAVIR PO SCH (11:55)
[2018-03-15] MEDS: TENOFOVIR ALAFENAMIDE PO SCH (11:55)
[2018-03-15] MEDS: EMTRICITABINE PO SCH (11:55)
[2018-03-15 16:00] VITALS: BP 121/84
[2018-03-15] MEDS: OLANZapine 10 MG TABLET PO SCH (20:41)
[2018-03-16 06:14] VITALS: BP 116/72
[2018-03-16] MEDS: BICTEGRAVIR PO SCH (06:45)
[2018-03-16] MEDS: EMTRICITABINE PO SCH (06:45)
[2018-03-16] MEDS: TENOFOVIR ALAFENAMIDE PO SCH (06:45)
[2018-03-16] MEDS: COBICISTAT PO SCH (06:46)
[2018-03-16] MEDS: FERROUS SULFATE 325 MG EC TABLET PO SCH ×2 (06:46→16:35)
[2018-03-16] MEDS: DARUNAVIR PO SCH (06:46)
[2018-03-16 08:08] VITALS: BP 111/72
[2018-03-16] MEDS: OMEPRAZOLE 20 MG CAPSULE PO SCH (08:17)
[2018-03-16] MEDS: DOCUSATE SODIUM 100 MG CAPSULE PO SCH (08:17)
[2018-03-16] MEDS: CHOLECALCIFEROL (VIT D3) 1,000 UNITS TABLET PO SCH (08:17)
[2018-03-16] MEDS: SIMVASTATIN 10 MG TABLET PO SCH (08:17)
[2018-03-16] MEDS: ACYCLOVIR 200 MG CAPSULE PO SCH ×3 (08:17→16:36)
[2018-03-16] MEDS: FLUoxetine HCL 20 MG CAPSULE PO SCH (08:18)
[2018-03-16] MEDS: CEPHALEXIN MONOHYDRATE 500 MG CAPSULE PO SCH ×3 (08:18→16:35)
[2018-03-16 16:20] VITALS: BP 129/84
[2018-03-16] MEDS: OLANZapine 10 MG TABLET PO SCH (20:32)
[2018-03-16] MEDS: ZOLPIDEM TARTRATE 10 MG TABLET PO PRN (21:05)
[2018-03-17] MEDS: BICTEGRAVIR PO SCH (06:36)
[2018-03-17] MEDS: EMTRICITABINE PO SCH (06:36)
[2018-03-17] MEDS: TENOFOVIR ALAFENAMIDE PO SCH (06:36)
[2018-03-17] MEDS: FERROUS SULFATE 325 MG EC TABLET PO SCH ×2 (06:36→17:01)
[2018-03-17] MEDS: DARUNAVIR PO SCH (06:37)
[2018-03-17] MEDS: COBICISTAT PO SCH (06:37)
[2018-03-17 07:29] VITALS: BP 116/80
[2018-03-17 08:20] VITALS: BP 113/66
[2018-03-17] MEDS: OMEPRAZOLE 20 MG CAPSULE PO SCH (08:20)
[2018-03-17] MEDS: SIMVASTATIN 10 MG TABLET PO SCH (08:20)
[2018-03-17] MEDS: DOCUSATE SODIUM 100 MG CAPSULE PO SCH (08:20)
[2018-03-17] MEDS: FLUoxetine HCL 20 MG CAPSULE PO SCH (08:21)
[2018-03-17] MEDS: CEPHALEXIN MONOHYDRATE 500 MG CAPSULE PO SCH ×3 (08:21→17:02)
[2018-03-17] MEDS: ACYCLOVIR 200 MG CAPSULE PO SCH ×3 (08:21→17:01)
[2018-03-17] MEDS: CHOLECALCIFEROL (VIT D3) 1,000 UNITS TABLET PO SCH (08:21)
[2018-03-17 16:26] VITALS: BP 102/83
[2018-03-17] MEDS: OLANZapine 10 MG TABLET PO SCH (20:21)
[2018-03-17] MEDS: ZOLPIDEM TARTRATE 10 MG TABLET PO PRN (20:27)
[2018-03-18 00:50] VITALS: BP 121/82
[2018-03-18] MEDS: EMTRICITABINE PO SCH (06:01)
[2018-03-18] MEDS: DARUNAVIR PO SCH (06:01)
[2018-03-18] MEDS: BICTEGRAVIR PO SCH (06:01)
[2018-03-18] MEDS: COBICISTAT PO SCH (06:01)
[2018-03-18] MEDS: TENOFOVIR ALAFENAMIDE PO SCH (06:01)
[2018-03-18] MEDS: FERROUS SULFATE 325 MG EC TABLET PO SCH (06:04)
[2018-03-18 08:21] VITALS: BP 124/74
[2018-03-18] MEDS: CHOLECALCIFEROL (VIT D3) 1,000 UNITS TABLET PO SCH (08:32)
[2018-03-18] MEDS: FLUoxetine HCL 20 MG CAPSULE PO SCH (08:32)
[2018-03-18] MEDS: SIMVASTATIN 10 MG TABLET PO SCH (08:32)
[2018-03-18] MEDS: DOCUSATE SODIUM 100 MG CAPSULE PO SCH (08:32)
[2018-03-18] MEDS: OMEPRAZOLE 20 MG CAPSULE PO SCH (08:32)
[2018-03-18] MEDS: CEPHALEXIN MONOHYDRATE 500 MG CAPSULE PO SCH ×2 (08:32→12:51)
[2018-03-18] MEDS: ACYCLOVIR 200 MG CAPSULE PO SCH ×2 (08:33→12:51)
[2018-03-18] MEDS ORDERED: OLAN10TA3 PO (09:07)
[2018-03-18] MEDS ORDERED: BICT1TAB PO (09:07)
[2018-03-18] MEDS ORDERED: FLUO-191 PO (09:07)
[2018-03-18] MEDS ORDERED: DARU1TAB PO (09:07)
[2018-03-18] MEDS ORDERED: CEPH500 PO (09:07)
== END 2018-03-18 13:30 | disposition home or self-care (01) | DRG 885 ==
LOC: EMS 15:27 → B2X 20:23
PROVIDERS: ADMIT Psychiatry & Neurology Psychiatry; ATTEND Psychiatry & Neurology Psychiatry
PROC: 3E0234Z Introduction of Serum, Toxoid and Vaccine into Muscle, Percutaneous Approach (ICD-10-PCS; principal; 2018-03-12)
DX: F25.0 Schizoaffective disorder, bipolar type (principal); R45.851 Suicidal ideations; N39.0 Urinary tract infection, site not specified; R45.87 Impulsiveness; F12.90 Cannabis use, unspecified, uncomplicated; B02.9 Zoster without complications; E55.9 Vitamin D deficiency, unspecified; D64.9 Anemia, unspecified; K21.9 Gastro-esophageal reflux disease without esophagitis; K59.00 Constipation, unspecified; E78.5 Hyperlipidemia, unspecified; F17.210 Nicotine dependence, cigarettes, uncomplicated; F41.9 Anxiety disorder, unspecified; Z87.898 Personal history of other specified conditions; Z91.19 Patient's noncompliance with other medical treatment and regimen; Z91.5 Personal history of self-harm; Z23 Encounter for immunization
CPT/HCPCS: 87086; 90686; 90732; 99406; G0480